=== PATIENT | male | born 1955 | race American Indian/Alaskan Native ===

== ENCOUNTER 2017-03-07 09:49 | Emergency (ER) | payer SELFPAY ==
[2017-03-07 10:23] LABS: Urine Drugs of Abuse Note Disclamer
[2017-03-07 10:31] LABS: Bilirubin,Urine NEG (Negative); Blood,Urine NEG (Negative); Ketones,Urine NEG (Negative); Leukocyte Esterase,Urine NEG (Negative); Mucus,Urine FEW /HPF; Nitrite,Urine NEG (Negative); Protein,Urine <15 mg/dL mg/dL (Negative); Urobilinogen,Urine < 2.0 mg/dL (<2.0); WBC,Urine < 1.0 /HPF (0.0-6.0)
[2017-03-07 10:53] LABS: Basophils % (Auto) 0.7 % (0.0-1.8); Hematocrit 44.9 % (35.5-45.6); Hemoglobin 15.7 gm/dl (11.8-15.2); Mean Corpuscular HGB Conc 35 % (32-34); Mean Corpuscular Hemoglobin 32 pg (28-32); Mean Corpuscular Volume 91 fl (84-94); Platelet Count 265 K/mm3 (140-440); Red Blood Count 4.92 M/mm3 (3.65-5.03); Red Cell Distribution Width 12.7 % (13.2-15.2); White Blood Count 8.1 K/mm3 (4.5-11.0)
--- NOTE | 2017-03-07 10:55 | Emergency Department Report ---
HPI - General Chief Complaint: Hypoglycemia Time Seen by Provider: 03/07/17 10:49 - HPI HPI: This is a 61-year-old Afro-[place] male presents to the emergency department with complaint of some transient confusion and possible hypoglycemia. The patient went out to his car around 5:30 AM to go to work and then woke up there now or so later not remembering that he went out to his car. The patient has a history of insulin dependent diabetes and thought he might be hypoglycemic and took a sugar pill. He then drove himself into the hospital but still felt foggy. He is now had some peanut butter and juice and says that he feels improved but not yet back to 100%. He denies any current headache, vision change, chest pain, shortness of breath. He has a history of insulin-dependent diabetes for which she takes regular insulin on a sliding scale at meals and 70/ 30 at 25 units twice daily. He goes to a clinic in [facility] for his primary care needs. He also has a history of hypertension. No history of [place], CVA, PE/DVT. No recent travel or sick contacts at home. ED Past Medical Hx - Past Medical History Previous Medical History?: Yes Hx Hypertension: Yes Hx Diabetes: Yes - Surgical History Past Surgical History?: Yes Hx Appendectomy: Yes - Social History Smoking Status: Current Some Day Smoker Substance Use Type: Alcohol - Medications Home Medications: Home Medications Medication Instructions Recorded Confirmed Last Taken Type Acetaminophen/Codeine [Tylenol #3] 1 tab PO Q6H PRN #10 tab 12/23/15 03/07/17 Rx Furosemide [Lasix] 20 mg PO QDAY #30 tablet 12/23/15 03/07/17 03/07/17 Rx Insulin NPH/Regular [Novolin 70/30] 25 unit SQ BID 12/23/15 03/07/17 03/07/17 History Insulin Regular, Human [HumuLIN R] 1 unit SQ Q6HR 12/23/15 03/07/17 03/07/17 History amLODIPine [Norvasc] 5 mg PO DAILY #30 tab 12/23/15 03/07/17 03/07/17 Rx ED Review of Systems ROS: Stated complaint: CONFUSION Other details as noted in HPI Comment: All other systems reviewed and negative Constitutional: denies: chills, fever Eyes: denies: eye pain, eye discharge, vision change ENT: denies: ear pain, throat pain Respiratory: denies: cough, shortness of breath, wheezing Cardiovascular: syncope. denies: chest pain, palpitations Gastrointestinal: denies: abdominal pain, nausea, diarrhea Genitourinary: denies: urgency, dysuria Musculoskeletal: denies: back pain, joint swelling, arthralgia Skin: denies: rash, lesions Neurological: confusion. denies: headache, weakness, paresthesias Physical Exam - Physical Exam Vital Signs: Vital Signs 03/07/17 09:57 Temperature 97.3 F L Pulse Rate 96 H Respiratory 16 Rate Blood Pressure 160/97 Physical Exam: GENERAL: The patient is well-developed well-nourished. HEENT: Normocephalic. Atraumatic. Extraocular motions are intact. Patient has moist mucous membranes. Pupils equal reactive to light bilaterally. No nystagmus. NECK: Supple. Trachea is midline. CHEST/LUNGS: Clear to auscultation. There is no respiratory distress noted. HEART/CARDIOVASCULAR: Regular. There is no tachycardia. There is no gallop rub or murmur. ABDOMEN: Abdomen is soft, nontender. Patient has normal bowel sounds. There is no abdominal distention. SKIN: Skin is warm and dry. NEURO: The patient is awake, alert, and oriented. The patient is cooperative. The patient has no focal neurologic deficits. The patient has normal speech. Cranial nerves II through XII grossly intact. MUSCULOSKELETAL: There is no tenderness or deformity. There is no limitation range of motion. There is no evidence of acute injury. Muscle strength 5 out of 5 upper and lower extremities bilaterally. ED Course Vital Signs 03/07/17 09:57 Temperature 97.3 F L Pulse Rate 96 H Respiratory 16 Rate Blood Pressure 160/97 ED Medical Decision Making - Lab Data Result diagrams: 03/07/17 10:17 03/07/17 10:17 - EKG Data -: EKG Interpreted by Me EKG shows normal: sinus rhythm, axis, intervals, QRS complexes, ST-T waves Rate: normal - EKG Data When compared to previous EKG there are: previous EKG unavailable Interpretation: normal EKG - Medical Decision Making 61-year-old male presents to the emergency department after he had some confusion and/or altered mental status earlier. He checked his sugar and found himself to have low blood sugar and took a sugar pill at home. Here the blood sugar was about 70 upon arrival. He was given peanut butter and juice. His blood sugar was rechecked about 2 hours later and his blood sugar level was about 30. He was then given an amp of D50 and a full meal to eat. His blood sugar went up to 180 and then about 250. The patient was once again hypoglycemic he started feeling nauseated and "off", but when the patient had the D50 and full meal he says he again feeling much better and is currently back at baseline. The patient admits that he is not sure whether he had any dinner last night or breakfast this morning but still did continue with his normal diabetes/insulin regiment. This is most likely the reason for his symptoms today. There is been no focal, motor or sensory deficits and his cranial nerves are intact throughout his ED course. Vital signs stable. He will be given referrals for primary care and encouraged to return to the emergency department with any worsening of symptoms or any acute distress. - Differential Diagnosis diabetic hypoglycemia, hypothyroidism, [place] Critical Care Time: No Critical care attestation.: If time is entered above; I have spent that time in minutes in the direct care of this critically ill patient, excluding procedure time. ED Disposition Clinical Impression: Diabetic hypoglycemia Disposition: DC-01 TO HOME OR SELFCARE Is pt being admited?: No Condition: Stable Instructions: Diabetic Hypoglycemia (ED) Additional Instructions: Please follow-up with a primary care physician in the next few days. Make sure to eat 3 meals a day if you are going to take your insulin normally. Keep a blood sugar log. Return to the emergency department with any worsening of your symptoms or any acute distress. Referrals: PHILLIP DESIR MD [Primary Care Provider] - 3-5 Days SHASTA CASTANEDA MD [Staff Physician] - 3-[address] [facility] [place] [Outside] - 3-5 Days [facility] [Outside] - 3-5 Days [facility] [Outside] - 3-5 Days Time of Disposition: 16:17
[2017-03-07 10:57] LABS: Alanine Aminotransferase 19 units/L (7-56); Albumin 4.5 g/dL (3.9-5); Albumin/Globulin Ratio 1.4 %; Alkaline Phosphatase 75 units/L (35-129); Anion Gap 17 mmol/L; BUN/Creatinine Ratio 7.69; Blood Urea Nitrogen 10 mg/dL (9-20); Calcium 9.1 mg/dL (8.4-10.2); Carbon Dioxide 26 mmol/L (22-30); Chloride 101.2 mmol/L (98-107); Glucose 77 mg/dL (75-100); Potassium 4.2 mmol/L (3.6-5.0); Sodium 140 mmol/L (137-145); Total Protein 7.8 g/dL (6.3-8.2)
[2017-03-07] MEDS ORDERED: ZOFRAN ODT PO ONE (13:52)
[2017-03-07] MEDS ORDERED: ZOFRAN IV ONE (13:57)
[2017-03-07] MEDS ORDERED: D50W (25GM) IV ONE (13:57)
[2017-03-07 16:11] VITALS: BP 142/69
== END 2017-03-07 16:30 | disposition home or self-care (01) ==
LOC: ED 09:49
DX: E11.649 Type 2 diabetes mellitus with hypoglycemia without coma (principal); I10 Essential (primary) hypertension; F17.210 Nicotine dependence, cigarettes, uncomplicated; Z79.4 Long term (current) use of insulin
CPT/HCPCS: 36415; 80053; 80307; 81001; 82140; 82962; 83735; 83880; 84443; 84484; 85025; 93005; 93010; 96374; 96375; 99284; G0480; J2405; 80320

== ENCOUNTER 2018-10-04 14:34 | Emergency (ER) | payer SELFPAY ==
[2018-10-04] MEDS ORDERED: MORPHINE IV ONE (16:41)
[2018-10-04] MEDS ORDERED: ZOFRAN IV ONE (16:41)
--- NOTE | 2018-10-04 16:45 | Emergency Department Report ---
ED Headache HPI - General Chief Complaint: Nausea/Vomiting/Diarrhea Stated Complaint: HEADACHE/NAUSEA Time Seen by Provider: 10/04/18 16:12 Source: patient - History of Present Illness Initial Comments: 63-year-old male presents to ED with complaint of headache since this morning. The patient states he awoke with bitemporal headache, nausea and vomiting. Patient also reports blurred vision. States he did not take anything for the pain prior to ED arrival due to his nausea. Did not take his blood pressure medications this morning due to same reason. Patient denies history of headaches. Denies fever, URI symptoms including runny nose, congestion, cough, shortness of breath. Patient denies trauma. Denies neck pain. Denies numbness or paresthesias. PCP: Meka Kerr Timing/Duration: other (this morning) Quality: moderate Head Injury Location: temporal Recent Head Trauma: other Modifying Factors: improves with: other (position, worse with sitting up, better with laying back) Associated Symptoms: nausea/vomiting, vision changes. denies: facial pain, fever/chills, nasal congestion, nasal drainage, sinus infection, stiff neck Allergies/Adverse Reactions: Allergies lisinopril Allergy (Verified 12/22/15 21:27) Unknown Home Medications: Ambulatory Orders Acetaminophen/Codeine [Tylenol #3] 1 tab PO Q6H PRN #10 tab 12/23/15 Furosemide [Lasix] 20 mg PO QDAY #30 tablet 12/23/15 Insulin NPH/Regular [Novolin 70/30] 25 unit SQ BID 12/23/15 Insulin Regular, Human [HumuLIN R] 1 unit SQ Q6HR 12/23/15 amLODIPine [Norvasc] 5 mg PO DAILY #30 tab 12/23/15 Butalb/Acetamin/Caff 50-325-40 [Fioricet] 1 tab PO Q6HR PRN #10 tab 10/04/18 ED Review of Systems ROS: Stated complaint: HEADACHE/NAUSEA Other details as noted in HPI Comment: All other systems reviewed and negative Constitutional: denies: chills, fever Eyes: vision change (blurred vision) ENT: denies: throat pain, congestion Respiratory: denies: cough Cardiovascular: denies: chest pain Gastrointestinal: nausea, vomiting. denies: abdominal pain Neurological: headache. denies: weakness, numbness, vertigo ED Past Medical Hx - Past Medical History Hx Hypertension: Yes Hx Diabetes: Yes - Surgical History Hx Appendectomy: Yes - Social History Smoking Status: Never Smoker Substance Use Type: None - Medications Home Medications: Home Medications Medication Instructions Recorded Confirmed Last Taken Type Acetaminophen/Codeine [Tylenol #3] 1 tab PO Q6H PRN #10 tab 12/23/15 03/07/17 03/07/17 Rx Furosemide [Lasix] 20 mg PO QDAY #30 tablet 12/23/15 03/07/17 03/07/17 Rx Insulin NPH/Regular [Novolin 70/30] 25 unit SQ BID 12/23/15 03/07/17 03/07/17 History Insulin Regular, Human [HumuLIN R] 1 unit SQ Q6HR 12/23/15 03/07/17 03/07/17 History amLODIPine [Norvasc] 5 mg PO DAILY #30 tab 12/23/15 03/07/17 03/07/17 Rx Butalb/Acetamin/Caff 50-325-40 1 tab PO Q6HR PRN #10 tab 10/04/18 Unknown Rx [Fioricet] ED Physical Exam - General Limitations: No Limitations General appearance: alert, in no apparent distress - Head Head exam: Present: atraumatic, normocephalic - Eye Eye exam: Present: normal appearance, PERRL, EOMI - ENT ENT exam: Present: mucous membranes moist - Neck Neck exam: Present: normal inspection. Absent: tenderness, meningismus - Respiratory Respiratory exam: Present: normal lung sounds bilaterally. Absent: respiratory distress - Cardiovascular Cardiovascular Exam: Present: regular rate, normal rhythm - GI/Abdominal GI/Abdominal exam: Present: soft. Absent: distended, tenderness - Extremities Exam Extremities exam: Present: normal inspection - Neurological Exam Neurological exam: Present: alert, oriented X3, CN II-XII intact. Absent: motor sensory deficit - Psychiatric Psychiatric exam: Present: normal affect, normal mood - Skin Skin exam: Present: warm, dry, intact, normal color. Absent: rash ED Course Vital Signs 10/04/18 10/04/18 14:43 18:43 Temperature 98.4 F Pulse Rate 74 98 H Respiratory 16 16 Rate Blood Pressure 178/87 Blood Pressure 173/86 [Left] O2 Sat by Pulse 98 96 Oximetry ED Medical Decision Making - Lab Data Result diagrams: 10/04/18 16:45 10/04/18 16:45 - Radiology Data Radiology results: report reviewed, image reviewed CT Head: no acute abnormality Radiology reports not crossing into Pin digital due to tech issues; results faxed to ED - Medical Decision Making 63-year-old male with temporal headache since this morning. Patient initially hypertensive upon ED arrival. Neurologic exam normal. CT scan did not show any acute findings. Patient was given morphine, Zofran, Reglan, Benadryl. Patient reported improvement of pain following medication administration. The patient currently improved to 142/69. Patient has tolerated PO, ate an entire meal tray here in ED. Will discharge at this time. Return precautions given. Outpatient follow-up advised. - Differential Diagnosis intracranial bleed, electrolyte abnormality, hypertensive KRUEGER, tension KRUEGER Critical care attestation.: If time is entered above; I have spent that time in minutes in the direct care of this critically ill patient, excluding procedure time. ED Disposition Clinical Impression: Acute headache Disposition: DC- TO HOME OR SELFCARE Is pt being admited?: No Condition: Stable Prescriptions: Butalb/Acetamin/Caff 50-325-40 [Fioricet] 1 tab PO Q6HR PRN #10 tab PRN Reason: Headache Referrals: PRIMARY CARE, [Primary Care Provider] - 3-5 Days Time of Disposition: 19:53
[2018-10-04 17:08] LABS: Basophils % (Auto) 0.4 % (0.0-1.8); Lymphocytes # (Auto) 0.8 K/mm3 (1.2-5.4); Lymphocytes % (Auto) 7.5 % (13.4-35.0); Mean Corpuscular HGB Conc 36 % (32-34); Mean Corpuscular Volume 92 fl (84-94); Monocytes # (Auto) 0.8 K/mm3 (0.0-0.8); Monocytes % (Auto) 7.3 % (0.0-7.3); Platelet Count 223 K/mm3 (140-440); Red Blood Count 4.95 M/mm3 (3.65-5.03); Red Cell Distribution Width 12.4 % (13.2-15.2)
[2018-10-04 17:19] LABS: Hematocrit 45.4 % (35.5-45.6); Hemoglobin 16.2 gm/dl (11.8-15.2)
[2018-10-04 17:20] LABS: BUN/Creatinine Ratio 10; Blood Urea Nitrogen 10 mg/dL (9-20); Calcium 8.9 mg/dL (8.4-10.2); Hemolysis Index 83
[2018-10-04] MEDS ORDERED: BENADRYL ONE (18:53)
[2018-10-04] MEDS ORDERED: REGLAN ONE (18:53)
[2018-10-04] MEDS ORDERED: REGLAN IV ONE (18:54)
[2018-10-04] MEDS ORDERED: BENADRYL IV ONE (18:54)
[2018-10-04] MEDS ORDERED: FIORICET ONE (20:02)
--- NOTE | 2018-10-04 23:20 | Cat Scan Report ---
CT HEAD/BRAIN WO CON CLINICAL INDICATION: Male, 63 years of age. headache COMPARISON: None TECHNIQUE: Contiguous axial images were obtained from the vertex through the skull base.This CT exam was perform ed using one or more of the following dose reduction techniques: automated exposure control, adjustme nt of the mA and/or kV according to patient size, or use of iterative reconstruction technique. FINDINGS: No acute intracranial hemorrhage, midline shift, or pathological extra-axial fluid collection. There is age-related volume loss with compensatory dilatation of the ventricular system and prominence of the overlying sulci. Patchy areas of decreased attenuation within the subcortical and periventricula r white matter compatible with the sequelae of chronic small vessel ischemic disease. Small chronic a ppearing lacunar infarcts in the bilateral basal ganglia. Ocular globes are grossly unremarkable. Lui varium is grossly intact. Mild mucosal thickening in the paranasal sinuses. Mastoid air cells are clear. IMPRESSION: No grossly acute intracranial abnormality. Mild volume loss and chronic small vessel ischemic disease . This document is electronically signed by Robbie Vincent DO., October 04 2018 06:11:30 PM ET
[2018-10-05] MEDS ORDERED: FIORICET PO ONE (00:21)
[2018-10-05 00:26] VITALS: BP 172/73
== END 2018-10-04 20:16 | disposition home or self-care (01) ==
LOC: ED 14:34
DX: R51 Headache (principal); R11.2 Nausea with vomiting, unspecified; H57.89 Other specified disorders of eye and adnexa; I10 Essential (primary) hypertension; E11.9 Type 2 diabetes mellitus without complications; Z88.8 Allergy status to other drugs, medicaments and biological substances; Z79.4 Long term (current) use of insulin
CPT/HCPCS: 36415; 70450; 80048; 85025; 96374; 96375; 99284; J1200; J2270; J2405; J2765

== ENCOUNTER 2018-10-12 07:21 | Inpatient (IN) | payer SELFPAY ==
[2018-10-12 08:25] LABS: Basophils # (Auto) 0.1 K/mm3 (0.0-0.1); Basophils % (Auto) 0.7 % (0.0-1.8); Hematocrit 42.7 % (35.5-45.6); Lymphocytes # (Auto) 0.8 K/mm3 (1.2-5.4); Lymphocytes % (Auto) 6.2 % (13.4-35.0); Mean Corpuscular HGB Conc 35 % (32-34); Mean Corpuscular Volume 92 fl (84-94); Monocytes % (Auto) 7.8 % (0.0-7.3); Platelet Count 208 K/mm3 (140-440); Red Blood Count 4.64 M/mm3 (3.65-5.03); Red Cell Distribution Width 12.3 % (13.2-15.2)
[2018-10-12 08:39] LABS: INR 0.93 (0.87-1.13)
[2018-10-12 08:40] LABS: Partial Thromboplastin Time 28.1 Sec. (24.2-36.6)
--- NOTE | 2018-10-12 08:40 | XRay Report ---
EXAM: XR CHEST 1V AP HISTORY: hypertension TECHNIQUE: AP chest x-ray dated 10/12/2018 at 7:59 AM. COMPARISON: None available. FINDINGS: The heart size and mediastinum are within normal limits. The lung price and costophrenic angles are clear. There is no acute parenchymal infiltrate, pleural effusion, or pneumothorax seen. The visua lized bony structures are within normal limits. IMPRESSION: 1. No evidence for acute cardiopulmonary disease seen. This document is electronically signed by Adin Barrios MD., October 12 2018 08:37:52 AM ET
[2018-10-12 08:42] LABS: Creatine Kinase MB 19.5 ng/mL (0.0-4.0)
[2018-10-12 08:53] LABS: BUN/Creatinine Ratio 15; Blood Urea Nitrogen 20 mg/dL (9-20); Calcium 8.9 mg/dL (8.4-10.2); Hemolysis Index 11
[2018-10-12 08:57] LABS: Albumin 4.1 g/dL (3.9-5); Bilirubin,Direct 0.2 mg/dL (0-0.2)
[2018-10-12 09:08] LABS: Chol/HDL Ratio 2.16 %
--- NOTE | 2018-10-12 09:41 | Cat Scan Report ---
EXAM: CT HEAD/BRAIN WO CON HISTORY: slurred speech TECHNIQUE: Spiral axial CT images are obtained through the brain without the administration of intra venous contrast. COMPARISON: None available. FINDINGS: There are parenchymal lucencies within the white matter tracks of the centrum semiovale, consistent w ith chronic sequela of atherosclerotic microvascular ischemic disease. Atherosclerosis of the intracr anial ICAs is seen. There is mild diffuse cerebral cortical atrophy. The centrum semiovale, basal ganglia, cerebellum, an d brainstem are otherwise grossly unremarkable for a noncontrast CT scan. There is no acute intracra nial hemorrhage, gross acute infarction, mass lesion, midline shift, or hydrocephalus seen. No extra -axial mass or abnormal fluid collection noted. The calvarium is intact. The partially imaged paranasal sinuses, middle ear cavities and mastoid air cells are clear. IMPRESSION: 1. Mild chronic microvascular ischemic disease throughout the centrum semiovale, but no discernible acute infarction seen. Consider followup MRI with diffusion-weighted imaging to rule out occult acute infarction if clinically warranted. 2. Atherosclerotic disease of the carotid siphons. 3. No skull fracture, intracranial hemorrhage, mass lesion, midline shift, or hydrocephalus seen. This document is electronically signed by Adin Barrios MD., October 12 2018 09:38:55 AM ET
--- NOTE | 2018-10-12 10:06 | Emergency Department Report ---
ED General Adult HPI - General Chief complaint: Hyperglycemia Stated complaint: DIABETES Time Seen by Provider: 10/12/18 07:45 Source: patient Mode of arrival: Ambulatory Limitations: No Limitations - History of Present Illness Initial comments: Is a 63-year-old man who thought it was a good idea to drink alcohol to raise his blood sugar when he found it to be low at about or p.m. yesterday he states. He states he had some slurred speech but it has improved. His bit nonspecific about the amount of alcohol he typically drinks her how much she drank last night. He is an insulin-dependent diabetic. He is obviously poorly managing his blood sugar but I believe he is compliant with his insulin. At time my exam the patient does not complain of headache. However he states he was seen here 2 days ago for a bad headache and had a CT examination. In actuality, the patient was seen on 10/04/2018 rather than 2 days ago: 63-year-old male with temporal headache since this morning. Patient initially hypertensive upon ED arrival. Neurologic exam normal. CT scan did not show any acute findings. Patient was given morphine, Zofran, Reglan, Benadryl. Patient reported improvement of pain following medication administration. The patient currently improved to 142/69. Patient has tolerated PO, ate an entire meal tray here in ED. Will discharge at this time. Return precautions given. Outpatient follow-up advised. Again at this time patient complains of no headache. He denies any focal weakness or numbness. He doesn't report any difficulty with coordination gait or vision. -: Gradual Severity scale (0 -10): 0 - Related Data Home Medications Medication Instructions Recorded Confirmed Last Taken Insulin NPH/Regular [Novolin 70/30] 25 unit SQ BID 12/23/15 03/07/17 03/07/17 Insulin Regular, Human [HumuLIN R] 1 unit SQ Q6HR 12/23/15 03/07/17 03/07/17 Previous Rx's Medication Instructions Recorded Last Taken Type Acetaminophen/Codeine [Tylenol #3] 1 tab PO Q6H PRN #10 tab 12/23/15 03/07/17 Rx Furosemide [Lasix] 20 mg PO QDAY #30 tablet 12/23/15 03/07/17 Rx amLODIPine [Norvasc] 5 mg PO DAILY #30 tab 12/23/15 03/07/17 Rx Butalb/Acetamin/Caff 50-325-40 1 tab PO Q6HR PRN #10 tab 10/04/18 Unknown Rx [Fioricet] Allergies Allergy/AdvReac Type Severity Reaction Status Date / Time lisinopril Allergy Unknown Verified 10/12/18 07:30 ED Review of Systems ROS: Stated complaint: DIABETES Other details as noted in HPI Constitutional: denies: chills, fever Eyes: denies: eye pain, eye discharge, vision change ENT: denies: ear pain, throat pain Respiratory: denies: cough, shortness of breath, wheezing Cardiovascular: denies: chest pain, palpitations Endocrine: no symptoms reported Gastrointestinal: denies: abdominal pain, nausea, diarrhea Genitourinary: denies: urgency, dysuria Musculoskeletal: denies: back pain, joint swelling, arthralgia Skin: denies: rash, lesions Neurological: other (slurred speech). denies: headache, weakness, paresthesias Psychiatric: denies: anxiety, depression Hematological/Lymphatic: denies: easy bleeding, easy bruising ED Past Medical Hx - Past Medical History Hx Hypertension: Yes Hx Diabetes: Yes - Surgical History Hx Appendectomy: Yes - Social History Smoking Status: Never Smoker Substance Use Type: None - Medications Home Medications: Home Medications Medication Instructions Recorded Confirmed Last Taken Type Acetaminophen/Codeine [Tylenol #3] 1 tab PO Q6H PRN #10 tab 12/23/15 03/07/17 03/07/17 Rx Furosemide [Lasix] 20 mg PO QDAY #30 tablet 12/23/15 03/07/17 03/07/17 Rx Insulin NPH/Regular [Novolin 70/30] 25 unit SQ BID 12/23/15 03/07/17 03/07/17 History Insulin Regular, Human [HumuLIN R] 1 unit SQ Q6HR 12/23/15 03/07/17 03/07/17 History amLODIPine [Norvasc] 5 mg PO DAILY #30 tab 12/23/15 03/07/17 03/07/17 Rx Butalb/Acetamin/Caff 50-325-40 1 tab PO Q6HR PRN #10 tab 10/04/18 Unknown Rx [Fioricet] ED Physical Exam - General Limitations: No Limitations General appearance: alert, in no apparent distress - Head Head exam: Present: atraumatic, normocephalic - Eye Eye exam: Present: normal appearance, PERRL, EOMI. Absent: scleral icterus - ENT ENT exam: Present: mucous membranes moist - Neck Neck exam: Present: normal inspection. Absent: tenderness, meningismus - Respiratory Respiratory exam: Present: normal lung sounds bilaterally. Absent: respiratory distress - Cardiovascular Cardiovascular Exam: Present: regular rate, normal rhythm. Absent: systolic murmur, diastolic murmur, rubs, gallop - GI/Abdominal GI/Abdominal exam: Present: soft, normal bowel sounds. Absent: distended, tenderness, guarding, rebound, rigid - Rectal Rectal exam: Present: deferred - Extremities Exam Extremities exam: Present: normal inspection - Back Exam Back exam: Present: normal inspection - Neurological Exam Neurological exam: Present: alert, oriented X3, CN II-XII intact, other (the patient's NIH stroke score is 0. His speech is not slurred.). Absent: motor sensory deficit - Psychiatric Psychiatric exam: Present: normal affect, normal mood - Skin Skin exam: Present: warm, dry, intact, normal color. Absent: rash ED Course Vital Signs 10/12/18 07:27 Temperature 98.6 F Pulse Rate 94 H Respiratory 20 Rate Blood Pressure 172/91 [Right] O2 Sat by Pulse 98 Oximetry - Reevaluation(s) Reevaluation #1: Patient is found to have evidence of cardiomyopathy and rhabdomyolysis. His urine drug screen is here pending. His alcohol level was actually not s ignificantly presents. He is diabetic. I think it would be worthwhile to admit him for treatment of his rhabdomyolysis which will have to be done in a very gradual fashion considering his cardiomyopathy, as well as, further evaluation of his "slurred speech", i.e., stroke workup. 10/12/18 10:50 Reevaluation #2: Discussed with Dr. Dumont. He will admit. 10/12/18 11:13 ED Medical Decision Making - Lab Data Result diagrams: 10/12/18 07:57 10/12/18 07:57 Laboratory Results - last 24 hr 10/12/18 10/12/18 10/12/18 07:35 07:57 07:57 WBC 12.4 H RBC 4.64 Hgb 15.0 Hct 42.7 MCV 92 MCH 32 MCHC 35 H RDW 12.3 L Plt Count 208 Lymph % (Auto) 6.2 L [place] % (Auto) 7.8 H Eos % (Auto) 0.0 Baso % (Auto) 0.7 Lymph # 0.8 L [place] # 1.0 H Eos # 0.0 Baso # 0.1 Seg Neutrophils % 85.3 H Seg Neutrophils # 10.6 H PT INR APTT VBG pH Sodium 136 L Potassium 4.6 Chloride 99.4 Carbon Dioxide 21 L Anion Gap 20 BUN 20 Creatinine 1.3 Estimated GFR > 60 BUN/Creatinine Ratio 15 Glucose 260 H POC Glucose 224 H Lactic Acid Calcium 8.9 Magnesium Total Bilirubin Direct Bilirubin Indirect Bilirubin AST ALT Alkaline Phosphatase Ammonia Total Creatine Kinase CK-MB (CK-2) CK-MB (CK-2) Rel Index Troponin T NT-Pro-B Natriuret Pep Total Protein Albumin Albumin/Globulin Ratio Triglycerides Cholesterol LDL Cholesterol Direct HDL Cholesterol Cholesterol/HDL Ratio Plasma/Serum Alcohol 10/12/18 10/12/18 10/12/18 07:57 07:57 07:57 WBC RBC Hgb Hct MCV MCH MCHC RDW Plt Count Lymph % (Auto) [place] % (Auto) Eos % (Auto) Baso % (Auto) Lymph # [place] # Eos # Baso # Seg Neutrophils % Seg Neutrophils # PT INR APTT VBG pH 7.406 Sodium Potassium Chloride Carbon Dioxide Anion Gap BUN Creatinine Estimated GFR BUN/Creatinine Ratio Glucose POC Glucose Lactic Acid Calcium Magnesium Total Bilirubin Direct Bilirubin Indirect Bilirubin AST ALT Alkaline Phosphatase Ammonia Total Creatine Kinase 4205 H CK-MB (CK-2) 19.5 H CK-MB (CK-2) Rel Index 0.4 Troponin T NT-Pro-B Natriuret Pep Total Protein Albumin Albumin/Globulin Ratio Triglycerides Cholesterol LDL Cholesterol Direct HDL Cholesterol Cholesterol/HDL Ratio Plasma/Serum Alcohol < 0.01 10/12/18 10/12/18 10/12/18 07:57 07:57 07:57 WBC RBC Hgb Hct MCV MCH MCHC RDW Plt Count Lymph % (Auto) [place] % (Auto) Eos % (Auto) Baso % (Auto) Lymph # [place] # Eos # Baso # Seg Neutrophils % Seg Neutrophils # PT 13.0 INR 0.93 APTT 28.1 VBG pH Sodium Potassium Chloride Carbon Dioxide Anion Gap BUN Creatinine Estimated GFR BUN/Creatinine Ratio Glucose POC Glucose Lactic Acid 1.80 Calcium Magnesium 2.30 Total Bilirubin 0.80 Direct Bilirubin 0.2 Indirect Bilirubin 0.6 AST 72 H ALT 24 Alkaline Phosphatase 72 Ammonia Total Creatine Kinase CK-MB (CK-2) CK-MB (CK-2) Rel Index Troponin T 0.050 H NT-Pro-B Natriuret Pep 2942 H Total Protein 7.0 Albumin 4.1 Albumin/Globulin Ratio 1.4 Triglycerides 112 Cholesterol 208 H LDL Cholesterol Direct 115 HDL Cholesterol 96 H Cholesterol/HDL Ratio 2.16 Plasma/Serum Alcohol 10/12/18 07:57 WBC RBC Hgb Hct MCV MCH MCHC RDW Plt Count Lymph % (Auto) [place] % (Auto) Eos % (Auto) Baso % (Auto) Lymph # [place] # Eos # Baso # Seg Neutrophils % Seg Neutrophils # PT INR APTT VBG pH Sodium Potassium Chloride Carbon Dioxide Anion Gap BUN Creatinine Estimated GFR BUN/Creatinine Ratio Glucose POC Glucose Lactic Acid Calcium Magnesium Total Bilirubin Direct Bilirubin Indirect Bilirubin AST ALT Alkaline Phosphatase Ammonia 35.0 Total Creatine Kinase CK-MB (CK-2) CK-MB (CK-2) Rel Index Troponin T NT-Pro-B Natriuret Pep Total Protein Albumin Albumin/Globulin Ratio Triglycerides Cholesterol LDL Cholesterol Direct HDL Cholesterol Cholesterol/HDL Ratio Plasma/Serum Alcohol - Radiology Data Radiology results: report reviewed (chest x-ray no acute process) IMPRESSION: 1. Mild chronic microvascular ischemic disease throughout the centrum semiovale, but no discernible acute infarction seen. Consider followup MRI with diffusion-weighted imaging to rule out occult acute infarction if clinically warranted. 2. Atherosclerotic disease of the carotid siphons. 3. No skull fracture, intracranial hemorrhage, mass lesion, midline shift, or hydrocephalus seen. This document is electronically signed by Adin Barrios MD., October 12 2018 09:38:55 AM ET Critical care attestation.: If time is entered above; I have spent that time in minutes in the direct care of this critically ill patient, excluding procedure time. ED Disposition Clinical Impression: Dysarthria, Poorly-controlled hypertension Rhabdomyolysis Qualifiers: Rhabdomyolysis type: non-traumatic Qualified Code(s): M62.82 - Rhabdomyolysis Cardiomyopathy Qualifiers: Cardiomyopathy type: unspecified Qualified Code(s): I42.9 - Cardiomyopathy, unspecified Type 2 diabetes mellitus Qualifiers: Diabetes mellitus [facility] insulin use: with long line teamster use Diabetes mellitus c omplication status: without complication Qualified Code(s): E11.9 - Type 2 diabetes mellitus without complications Disposition: DC-09 OP ADMIT IP TO THIS HOSP Is pt being admited?: Yes Does the pt Need Aspirin: Yes Condition: Stable Instructions: Diabetes Mellitus Type 2 in Adults (ED) Referrals: PRIMARY CARE, [Primary Care Provider] - 3-5 Days Time of Disposition: 10:53
[2018-10-12] MEDS ORDERED: ASPIRIN PO ONE (10:53)
--- NOTE | 2018-10-12 11:15 | History and Physical Report ---
History of Present Illness Chief complaint: I feel bad History of present illness: 63 YO Male with HTN, DM, ETOH Dependence presents to ED for evaluation. Pt states that he was in his usual state of health at bedtime around 2200 hrs, but he experienced generalized weakness with worsened symptoms in his right arm and leg and an acute onset of slurred speech shortly after awaking from sleep this morning. Pt transported to [facility] via private vehicle. Pt seen and evaluated in ED and found to have symptoms consistent with CVA as well as Rhabdomyolysis. Pt admitted to telemetry and initiated on CVA protocol. Pt lase ingstion of ETOH was on the night prior to admission. Pt denies fever, chills, CP, Palpitations, NVD, Trauma, BRBPR, Skin Rash, Unintentional weight loss, or night sweats. Neurology consulted in ED. Past History Past Medical History: diabetes, hypertension Past Surgical History: appendectomy Social history: , lives with family, alcohol abuse Family history: diabetes, hypertension Medications and Allergies Allergies Allergy/AdvReac Type Severity Reaction Status Date / Time lisinopril Allergy Unknown Verified 10/12/18 11:21 Home Medications Medication Instructions Recorded Confirmed Last Taken Type Acetaminophen/Codeine [Tylenol #3] 1 tab PO Q6H PRN #10 tab 12/23/15 03/07/17 03/07/17 Rx Furosemide [Lasix] 20 mg PO QDAY #30 tablet 12/23/15 03/07/17 03/07/17 Rx Insulin NPH/Regular [Novolin 70/30] 25 unit SQ BID 12/23/15 03/07/17 03/07/17 History Insulin Regular, Human [HumuLIN R] 1 unit SQ Q6HR 12/23/15 03/07/17 03/07/17 History amLODIPine [Norvasc] 5 mg PO DAILY #30 tab 12/23/15 03/07/17 03/07/17 Rx Butalb/Acetamin/Caff 50-325-40 1 tab PO Q6HR PRN #10 tab 10/04/18 Unknown Rx [Fioricet] Review of Systems Constitutional: no weight loss, no weight gain, no fever, no chills Ears, nose, mouth and throat: no ear pain, no ear discharge, no tinnitis, no decreased hearing, no nose pain, no nasal congestion Cardiovascular: no chest pain, no orthopnea, no palpitations, no syncope Respiratory: no cough, no cough with sputum, no excessive sputum, no hemoptysis, no shortness of breath Gastrointestinal: no nausea, no vomiting, no diarrhea, no constipation Genitourinary Male: no hematuria, no flank pain, no discharge, no urinary frequency, no urinary hesitancy Rectal: no pain, no incontinence, no bleeding Musculoskeletal: no neck stiffness, no neck pain, no shooting arm pain, no arm numbness/tingling, no low back pain, no shooting leg pain Integumentary: no rash, no pruritis, no redness, no sores, no wounds Neurological: weakness, aphasia, change in speech, gait dysfunction, motor disturbance, no seizures, no syncope, no tremors Psychiatric: no anxiety, no memory loss, no change in sleep habits, no sleep disturbances, no hypersomnia Endocrine: no cold intolerance, no heat intolerance, no polyphagia, no excessive thirst, no polydipsia, no polyuria Hematologic/Lymphatic: no easy bruising, no easy bleeding, no lymphadenopathy, no lymphedema Allergic/Immunologic: no urticaria, no allergic rhinitis, no wheezing Exam - Constitutional Vitals: Temp Pulse Resp BP Pulse Ox 98.6 F 94 H 20 172/91 98 10/12/18 07:27 10/12/18 07:27 10/12/18 07:27 10/12/18 07:27 10/12/18 07:27 General appearance: Present: mild distress - EENT Eyes: Present: PERRL ENT: hearing intact, clear oral mucosa - Neck Neck: Present: supple, normal ROM - Respiratory Respiratory effort: normal Respiratory: bilateral: CTA - Cardiovascular Heart Sounds: Present: S1 & S2. Absent: rub, click - Extremities Extremities: pulses symmetrical, No edema Peripheral Pulses: within normal limits - Abdominal General gastrointestinal: Present: soft, non-tender, non-distended, normal bowel sounds Male genitourinary: Present: normal - Integumentary Integumentary: Present: clear, warm, dry - Musculoskeletal Musculoskeletal: generalized weakness - Psychiatric Psychiatric: appropriate mood/affect, intact judgment & insight - Neurologic Neurologic: CNII-XII intact, moves all extremities, no gait normal Results - Labs CBC & Chem 7: 10/12/18 07:57 10/12/18 07:57 Labs: Abnormal lab results 10/12/18 10/12/18 10/12/18 Range/Units 07:35 07:57 07:57 WBC 12.4 H (4.5-11.0) K/mm3 MCHC 35 H (32-34) % RDW 12.3 L (13.2-15.2) % Lymph % (Auto) 6.2 L (13.4-35.0) % [place] % (Auto) 7.8 H (0.0-7.3) % Lymph # 0.8 L (1.2-5.4) K/mm3 [place] # 1.0 H (0.0-0.8) K/mm3 Seg Neutrophils % 85.3 H (40.0-70.0) % Seg Neutrophils # 10.6 H (1.8-7.7) K/mm3 Sodium 136 L (137-145) mmol/L Carbon Dioxide 21 L (22-30) mmol/L Glucose 260 H (75-100) mg/dL POC Glucose 224 H (70-105) AST (5-40) units/L Total Creatine Kinase (55-170) units/L CK-MB (CK-2) (0.0-4.0) ng/mL Troponin T (0.00-0.029) ng/mL NT-Pro-B Natriuret Pep (0-900) pg/mL Cholesterol (50-199) mg/dL HDL Cholesterol (40-59) mg/dL 10/12/18 10/12/18 Range/Units 07:57 07:57 WBC (4.5-11.0) K/mm3 MCHC (32-34) % RDW (13.2-15.2) % Lymph % (Auto) (13.4-35.0) % [place] % (Auto) (0.0-7.3) % Lymph # (1.2-5.4) K/mm3 [place] # (0.0-0.8) K/mm3 Seg Neutrophils % (40.0-70.0) % Seg Neutrophils # (1.8-7.7) K/mm3 Sodium (137-145) mmol/L Carbon Dioxide (22-30) mmol/L Glucose (75-100) mg/dL POC Glucose (70-105) AST 72 H (5-40) units/L Total Creatine Kinase 4205 H (55-170) units/L CK-MB (CK-2) 19.5 H (0.0-4.0) ng/mL Troponin T 0.050 H (0.00-0.029) ng/mL NT-Pro-B Natriuret Pep 2942 H (0-900) pg/mL Cholesterol 208 H (50-199) mg/dL HDL Cholesterol 96 H (40-59) mg/dL Assessment and Plan - Patient Problems (1) CVA (cerebral vascular accident) Current Visit: Yes Status: Acute Qualifiers: Precerebral and cerebral artery: middle cerebral artery Laterality of affected vessel: left Plan to address problem: Stroke Protocol: Admit to telemetry, CT head, MRI Brain, MRA Brain, Echo, Carotid Doppler, Echo, PT/OT/Speech, Antiplatelet therapy, lipid panel, statin therapy, (2) EtOH dependence Current Visit: Yes Status: Acute Qualifiers: Substance use status: uncomplicated Qualified Code(s): F10.20 - Alcohol dependence, uncomplicated Plan to address problem: Thiamine, Folic Acid, Multivitamin, CIWA protocol, (3) Cardiomyopathy Current Visit: Yes Status: Acute Qualifiers: Cardiomyopathy type: alcoholic Qualified Code(s): I42.6 - Alcoholic cardiomyopathy Plan to address problem: Supportive care, Strict I/O, Daily weight, ETOH cessation, BNP, monitor uop q shift, (4) Rhabdomyolysis Current Visit: Yes Status: Acute Qualifiers: Rhabdomyolysis type: non-traumatic Qualified Code(s): M62.82 - Rhabdomyolysis Plan to address problem: IVF resuscitation therapy, IV bicarbonate, CK level in AM, urinalysis, monitor uop q shift, monitor serum creatnine for signs of renal failure. (5) DVT prophylaxis Current Visit: Yes Status: Acute Plan to address problem: SCD to BLE while in bed.
[2018-10-12] MEDS ORDERED: ZOFRAN IV PRN (11:17)
[2018-10-12] MEDS ORDERED: TYLENOL PO PRN ×2 (11:17→12:52)
[2018-10-12] MEDS ORDERED: PROVENTIL IH PRN ×2 (11:17→12:52)
[2018-10-12] MEDS ORDERED: SODIUM CHLORIDE FLUSH SYRINGE 10 ML IV PRN ×2 (11:17→12:52)
[2018-10-12] MEDS ORDERED: ATIVAN IV PRN (11:20)
[2018-10-12] MEDS ORDERED: VITAMIN B-1 PO ONE (11:21)
[2018-10-12] MEDS ORDERED: THERAGRAN Tab PO ONE ×2 (11:21→12:46)
[2018-10-12 12:22] LABS: Bilirubin,Urine NEG (Negative); Blood,Urine MOD (Negative); Color,Urine Yellow (Yellow); Urobilinogen,Urine < 2.0 mg/dL (<2.0); WBC,Urine < 1.0 /HPF (0.0-6.0)
[2018-10-12 12:30] LABS: Amphetamine Screen,Urine PRESUMPTIVE NEGATIVE; Benzodiazepines Screen,Urine PRESUMPTIVE NEGATIVE; Cannabinoid Screen,Urine PRESUMPTIVE NEGATIVE; Cocaine Screen,Urine PRESUMPTIVE NEGATIVE; Methadone Screen,Urine PRESUMPTIVE NEGATIVE; Opiate Screen,Urine PRESUMPTIVE NEGATIVE
[2018-10-12] MEDS ORDERED: ASPIRIN ONE (12:45)
[2018-10-12] MEDS ORDERED: VITAMIN B-1 ONE (12:46)
[2018-10-12] MEDS ORDERED: FOLVITE ONE (12:46)
[2018-10-12] MEDS: FOLVITE PO SCH (12:47)
[2018-10-12] MEDS ORDERED: REGLAN PO PRN (12:52)
[2018-10-12] MEDS ORDERED: MILK OF MAGNESIA PO PRN (12:52)
[2018-10-12] MEDS ORDERED: PHENERGAN PR PRN (12:52)
[2018-10-12] MEDS ORDERED: DULCOLAX PR PRN (12:52)
[2018-10-12] MEDS ORDERED: FIORICET PO PRN (12:55)
[2018-10-12] MEDS ORDERED: NACL 0.45% 1000 ML 1,000 ML IV ONE (12:55)
--- NOTE | 2018-10-12 13:55 | Vascular Lab Report ---
PROCEDURE: VL CAROTID DUPLEX BILAT TECHNIQUE: Duplex Doppler ultrasound of the common, internal and external carotid arteries and the v ertebral arteries was performed bilaterally. Larios scale imaging, velocity spectral waveform analysis, and color flow Doppler were employed. HISTORY: stroke COMPARISONS: None . Note: Measurement of carotid stenosis is based on flow velocity values that correlate with the [place] Symptomatic Carotid Endarterectomy Trial (NASCET) based stenosis criteria using the internal carotid artery diameter as the denominator for stenosis calculation. FINDINGS: RIGHT carotid artery: Velocities: ICA PSV: 94 cm/sec ICA End diastolic: 32 cm/sec CCA PSV: 124 cm/sec IC/CC ratio: 0.7 5 Plaque/color flow: Mild heterogeneous plaque without significant spectral broadening or abnormal col or flow . RIGHT vertebral artery: Antegrade systolic and diastolic flow LEFT carotid artery: Velocities: ICA PSV: 103 cm/sec ICA End diastolic: 18 cm/sec CCA PSV: 131 cm/sec IC/CC ratio: 0. 79 Plaque/color flow: Mild heterogeneous plaque without significant spectral broadening or abnormal col or flow . LEFT vertebral artery: Antegrade systolic and diastolic flow IMPRESSION: 1. RIGHT carotid: No hemodynamically significant (less than 50 percent) internal carotid artery med nosis. 2. LEFT carotid: No hemodynamically significant (less than 50 percent) internal carotid artery sten osis. 3. Vertebral arteries: Bilaterally antegrade. This document is electronically signed by Julien Lazo MD., October 12 2018 01:53:09 PM ET
[2018-10-12] MEDS: NACL 0.45% 1000 ML 1,000 ML IV SCH ×2 (15:30→22:48)
[2018-10-12] MEDS ORDERED: AFLURIA QUAD 2018-2019 SYRINGE IM ONE (15:51)
[2018-10-12] MEDS: LASIX PO SCH (16:22)
[2018-10-12] MEDS: NORVASC PO SCH (16:23)
[2018-10-12] MEDS: HumuLIN R SUB-Q SCH (17:18)
[2018-10-12] MEDS: SODIUM CHLORIDE FLUSH SYRINGE 10 ML IV SCH (21:10)
[2018-10-13] MEDS: HumuLIN R SUB-Q SCH ×4 (00:05→19:22)
[2018-10-13] MEDS: ZOFRAN IV PRN (00:23)
[2018-10-13] MEDS: TYLENOL #3 PO PRN ×2 (02:18→20:10)
[2018-10-13] MEDS: NACL 0.45% 1000 ML 1,000 ML IV SCH (08:54)
[2018-10-13] MEDS: SODIUM CHLORIDE FLUSH SYRINGE 10 ML IV SCH ×2 (09:00→21:57)
[2018-10-13] MEDS: NORVASC PO SCH (09:00)
[2018-10-13] MEDS: LASIX PO SCH (09:00)
[2018-10-13] MEDS: FOLVITE PO SCH (09:02)
--- NOTE | 2018-10-13 13:52 | Progress Note ---
Assessment and Plan (1) CVA (cerebral vascular accident) Current Visit: Yes Status: Acute Qualifiers: Precerebral and cerebral artery: middle cerebral artery Laterality of affected vessel: left Plan to address problem: Stroke Protocol: F/u with CT head, MRI Brain, MRA Brain, Echo, Carotid Doppler, Echo, PT/OT/Speech, Antiplatelet therapy, lipid panel, statin therapy, (2) EtOH dependence Current Visit: Yes Status: Acute Qualifiers: Substance use status: uncomplicated Qualified Code(s): F10.20 - Alcohol dependence, uncomplicated Plan to address problem: Thiamine, Folic Acid, Multivitamin, CIWA protocol, (3) Cardiomyopathy Current Visit: Yes Status: Acute Qualifiers: Cardiomyopathy type: alcoholic Qualified Code(s): I42.6 - Alcoholic cardiomyopathy Plan to address problem: Supportive care, Strict I/O, Daily weight, ETOH cessation, BNP, monitor uop q shift, (4) Rhabdomyolysis Current Visit: Yes Status: Acute Qualifiers: Rhabdomyolysis type: non-traumatic Qualified Code(s): M62.82 - Rhabdomyolysis Plan to address problem: IVF resuscitation therapy, IV bicarbonate, CK level in AM, urinalysis, monitor uop q shift, monitor serum creatnine for signs of renal failure. (5) DVT prophylaxis Current Visit: Yes Status: Acute Plan to address problem: SCD to BLE while in bed. Subjective Date of service: 10/13/18 Interval history: pt seen and examined. No new complaint Objective - Constitutional Vitals: Vital Signs - 12hr 10/13/18 10/13/18 10/13/18 02:18 03:18 05:03 Temperature 98.4 F Pulse Rate 73 Respiratory 17 16 20 Rate Blood Pressure 148/80 O2 Sat by Pulse 98 Oximetry 10/13/18 12:55 Temperature 99.2 F Pulse Rate 86 Respiratory 18 Rate Blood Pressure 133/69 O2 Sat by Pulse 97 Oximetry General appearance: Present: no acute distress, well-nourished - EENT Eyes: PERRL, EOM intact Ears: bilateral: normal - Neck Neck: supple, normal ROM - Respiratory Respiratory effort: normal Respiratory: bilateral: CTA - Cardiovascular Rhythm: regular Heart Sounds: Present: S1 & S2. Absent: gallop, rub Extremities: pulses intact, No edema, normal color, Full ROM - Gastrointestinal General gastrointestinal: Present: soft, non-tender, non-distended, normal bowel sounds - Integumentary Integumentary: clear, warm, dry - Musculoskeletal Musculoskeletal: strength equal bilaterally - Neurologic Neurologic: focal deficits (left hemiparesis) - Psychiatric Psychiatric: memory intact, appropriate mood/affect, intact judgment & insight - Labs CBC & Chem 7: 10/12/18 07:57 10/12/18 07:57 Labs: Abnormal lab results 10/12/18 10/12/18 10/13/18 Range/Units 16:52 23:53 05:40 POC Glucose 224 H 218 H (70-105) Total Creatine Kinase 2387 H (55-170) units/L
--- NOTE | 2018-10-13 19:29 | Consultation ---
History of Present Illness Consult date: 10/13/18 Requesting physician: GOYO ASHRAF Reason for Consult: left facial weakness and numbness History of present illness: 63 yr. old rt. handed male with history of insulin dependent diabetes, hypertension and alcohol dependence, presented to ER on 10/12/18 because of low blood sugar. He recalls getting in his truck, then passing out for several hours. Upon awakening he drove himself to the ER, feeling that his legs were weak and speech slurred. He denies numbness or tingling of his extremities, denies problems with vision, headache, nausea, diaphoresis, chest pain, palpitations, dizziness or vertigo. He does not feel that one side was weake than the other. CPK was found to be elevated on admission. CT brain revealed chronic microvascular disease. Past History Past Medical History: diabetes, hypertension Past Surgical History: appendectomy Social history: , lives with family, alcohol abuse Family history: diabetes, hypertension Medications and Allergies Allergies Allergy/AdvReac Type Severity Reaction Status Date / Time lisinopril Allergy Unknown Verified 10/12/18 11:21 Home Medications Medication Instructions Recorded Confirmed Last Taken Type Acetaminophen/Codeine [Tylenol #3] 1 tab PO Q6H PRN #10 tab 12/23/15 10/12/18 10/11/18 Rx Furosemide [Lasix] 20 mg PO QDAY #30 tablet 12/23/15 10/12/18 10/11/18 Rx Insulin NPH/Regular [Novolin 70/30] 25 unit SQ BID 12/23/15 10/12/18 10/11/18 History Insulin Regular, Human [HumuLIN R] 1 unit SQ Q6HR 12/23/15 10/12/18 10/11/18 History amLODIPine [Norvasc] 5 mg PO DAILY #30 tab 12/23/15 10/12/18 10/11/18 Rx Butalb/Acetamin/Caff 50-325-40 1 tab PO Q6HR PRN #10 tab 10/04/18 10/12/18 10/11/18 Rx [Fioricet] Active Meds: Active Medications Acetaminophen (Tylenol) 650 mg PO Q4H PRN PRN Reason: Pain, Mild (1-3) Acetaminophen/Butalbital/Caffeine (Fioricet) 1 tab PO Q6H PRN PRN Reason: Headache Last Admin: 10/12/18 21:09 Dose: 1 tab Documented by: Acetaminophen/Codeine Phosphate (Tylenol #3) 1 tab PO Q6H PRN PRN Reason: Pain, Moderate Last Admin: 10/13/18 02:18 Dose: 1 tab Documented by: Albuterol (Proventil) 2.5 mg IH Q3H PRN PRN Reason: Shortness Of Breath Amlodipine Besylate (Norvasc) 5 mg PO DAILY [facility] Last Admin: 10/13/18 09:00 Dose: 5 mg Documented by: Atorvastatin Calcium (Lipitor) 40 mg PO QHS [facility] Last Admin: 10/12/18 21:09 Dose: 40 mg Documented by: Bisacodyl (Dulcolax) 10 mg PA QDAY PRN PRN Reason: Constipation Folic Acid (Folvite) 1 mg PO QDAY [facility] Last Admin: 10/13/18 09:02 Dose: 1 mg Documented by: Furosemide (Lasix) 20 mg PO QDAY [facility] Last Admin: 10/13/18 09:00 Dose: 20 mg Documented by: Sodium Chloride (Nacl 0.45% 1000 Ml) 1,000 mls @ 100 mls/hr IV DIRECT [facility] Last Admin: 10/13/18 08:54 Dose: 100 mls/hr Documented by: Insulin Human Isoph/Insulin Regular (Humulin 70/30) 25 unit SUB-Q BIDDIAB [facility] Last Admin: 10/13/18 19:21 Dose: 25 unit Documented by: Insulin Human Regular (Humulin R) 1 units SUB-Q Q6HR [facility] Last Admin: 10/13/18 19:22 Dose: 1 units Documented by: Lorazepam (Ativan) 2 mg IV Q1HR PRN PRN Reason: CIWA-Ar 8-15 Magnesium Hydroxide (Milk Of Magnesia) 30 ml PO Q4H PRN PRN Reason: Constipation Metoclopramide HCl (Reglan) 10 mg PO Q6H PRN PRN Reason: Nausea And Vomiting Ondansetron HCl (Zofran) 4 mg IV Q8H PRN PRN Reason: Nausea And Vomiting Last Admin: 10/13/18 00:23 Dose: 4 mg Documented by: Promethazine HCl (Phenergan) 25 mg PA Q6H PRN PRN Reason: Nausea And Vomiting Sodium Chloride (Sodium Chloride Flush Syringe 10 Ml) 10 ml IV BID JARROD Last Admin: 10/13/18 09:00 Dose: 10 ml Documented by: Sodium Chloride (Sodium Chloride Flush Syringe 10 Ml) 10 ml IV PRN PRN PRN Reason: LINE FLUSH Sodium Chloride (Sodium Chloride Flush Syringe 10 Ml) 10 ml IV PRN PRN PRN Reason: LINE FLUSH Review of Systems Constitutional: no sweats, no weakness Ears, nose, mouth and throat: nasal congestion, sinus pressure, sinus pain, no headache, no vertigo Cardiovascular: no chest pain, no palpitations, no rapid/irregular heart beat, no edema, no syncope, no lightheadedness, no shortness of breath Respiratory: no cough, no shortness of breath, no congestion Gastrointestinal: no nausea, no vomiting, no diarrhea, no constipation Genitourinary Male: no dysuria, no urinary frequency Musculoskeletal: other (bilateral leg pain, muscle dorsiflexors and extensors of calves) Integumentary: no pruritis Neurological: lack of coordination, gait dysfunction, no head injury, no transient paralysis, no weakness, no parathesias, no numbness, no ataxia, no v ertigo, no headaches, no double vision, no loss of vision, no hearing difficulties Physical Examination - Vital Signs Vital Signs: Vital Signs Temp Pulse Resp BP Pulse Ox 98.6 F 94 H 20 172/91 98 10/12/18 07:27 10/12/18 07:27 10/12/18 07:27 10/12/18 07:27 10/12/18 07:27 - Physical Exam Narrative exam: General - Resting comfortably in bed. Neurological exam - Speech fluent, relates history well. 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 V-1 thru V-3 intact bilaterally, face symmetric hearing intact, tongue midline. Motor - 5/5 throughout. Reflexes - trace throughout. Sensory - intact to touch and pin. Cerebellar - FTN, FFM, Emil intact. Results - Laboratory Findings CBC and BMP: 10/12/18 07:57 10/12/18 07:57 Abnormal Lab Findings: Abnormal Labs 10/12/18 10/12/18 10/12/18 07:35 07:57 07:57 WBC 12.4 H MCHC 35 H RDW 12.3 L Lymph % (Auto) 6.2 L [place] % (Auto) 7.8 H Lymph # 0.8 L [place] # 1.0 H Seg Neutrophils % 85.3 H Seg Neutrophils # 10.6 H Sodium 136 L Carbon Dioxide 21 L Glucose 260 H POC Glucose 224 H Hemoglobin A1c AST Total Creatine Kinase CK-MB (CK-2) Troponin T NT-Pro-B Natriuret Pep Cholesterol HDL Cholesterol 10/12/18 10/12/18 10/12/18 07:57 07:57 07:57 WBC MCHC RDW Lymph % (Auto) [place] % (Auto) Lymph # [place] # Seg Neutrophils % Seg Neutrophils # Sodium Carbon Dioxide Glucose POC Glucose Hemoglobin A1c 8.8 H AST 72 H Total Creatine Kinase 4205 H CK-MB (CK-2) 19.5 H Troponin T 0.050 H NT-Pro-B Natriuret Pep 2942 H Cholesterol 208 H HDL Cholesterol 96 H 10/12/18 10/12/18 10/13/18 16:52 23:53 05:40 WBC MCHC RDW Lymph % (Auto) [place] % (Auto) Lymph # [place] # Seg Neutrophils % Seg Neutrophils # Sodium Carbon Dioxide Glucose POC Glucose 224 H 218 H Hemoglobin A1c AST Total Creatine Kinase 2387 H CK-MB (CK-2) Troponin T NT-Pro-B Natriuret Pep Cholesterol HDL Cholesterol Assessment and Plan 63 yr old insulin dependent diabetic, presented with spell of hypoglycemia and rhabdomyolosis. No acute changes noted on CT. MRI brain pending. Suspect his balance difficulty and slurred speech may have been due to hypoglycemia, possible ETOH intake. Plan - Await MRI results, Continue fluids for rhabdomyolysis. Regulate insulin.
--- NOTE | 2018-10-13 19:51 | Magnetic Resonance Report ---
PROCEDURE: MR BRAIN WO CON HISTORY: stroke FINDINGS: MRI of the brain was performed using sagittal T1, axial diffusion, axial T2, axial FLAIR, a xial T1 and coronal FLAIR images. Comparison is made with CT examination of October 12. 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 There is no Chiari malformation. Diffusion-weighted images demonstrate no acute transcortical or acute lacunar infarct. There are norm al flow voids in the vertebral arteries, basilar artery and both internal carotid arteries. The mastoid air cells and middle ears appear clear. There is no evidence of acute sinusitis. There are old bilateral basal ganglia lacunar infarcts. There are mild chronic appearing small vessel ischemic white matter changes in the subcortical and periventricular white matter. IMPRESSION: No acute transcortical or acute lacunar infarct This document is electronically signed by Nile Baker MD., October 13 2018 07:49:37 PM ET
--- NOTE | 2018-10-13 19:55 | Magnetic Resonance Report ---
PROCEDURE: MR MRA/MRV HEAD WO CON HISTORY: stroke FINDINGS: MRA of the intracranial arterial vasculature was performed and compared to the MRI performed the same day as well as to the CT head performed October 12. Data was reformatted in multiple projections. These images demonstrate that both vertebral arteries are patent. The basilar artery is patent. Both posterior cerebral arteries are small vessels but appear patent. The right posterior cerebral artery is largely perfused from the anterior circulation, a normal variant. In the anterior circulation the internal carotid, middle cerebral and anterior cerebral arteries appe ar patent. No aneurysm is seen. IMPRESSION: The intracranial arterial vasculature appears patent This document is electronically signed by Nile Baker MD., October 13 2018 07:52:23 PM ET
[2018-10-13] MEDS ORDERED: D50W (25GM) Syringe IV PRN (23:46)
[2018-10-14] MEDS: HumuLIN R SUB-Q SCH ×5 (01:02→21:50)
[2018-10-14 05:17] LABS: Basophils % (Auto) 0.4 % (0.0-1.8); Eosinophils # (Auto) 0.1 K/mm3 (0.0-0.4); Eosinophils % (Auto) 1.2 % (0.0-4.3); Hematocrit 41.3 % (35.5-45.6); Hemoglobin 14.6 gm/dl (11.8-15.2); Lymphocytes # (Auto) 0.9 K/mm3 (1.2-5.4); Lymphocytes % (Auto) 15.4 % (13.4-35.0); Mean Corpuscular HGB Conc 35 % (32-34); Mean Corpuscular Volume 91 fl (84-94); Monocytes # (Auto) 0.7 K/mm3 (0.0-0.8); Platelet Count 185 K/mm3 (140-440); Red Blood Count 4.53 M/mm3 (3.65-5.03); Red Cell Distribution Width 12.5 % (13.2-15.2)
[2018-10-14 05:41] LABS: BUN/Creatinine Ratio 12; Blood Urea Nitrogen 12 mg/dL (9-20); Calcium 8.2 mg/dL (8.4-10.2); Hemolysis Index 6
[2018-10-14 05:44] LABS: Alanine Aminotransferase 30 units/L (7-56); Albumin 3.4 g/dL (3.9-5)
[2018-10-14 05:45] LABS: Bilirubin,Direct < 0.2 mg/dL (0-0.2)
[2018-10-14] MEDS: NACL 0.45% 1000 ML 1,000 ML IV SCH (07:53)
[2018-10-14] MEDS: NORVASC PO SCH (10:40)
[2018-10-14] MEDS: LASIX PO SCH (10:40)
[2018-10-14] MEDS: FOLVITE PO SCH (10:40)
[2018-10-14] MEDS: SODIUM CHLORIDE FLUSH SYRINGE 10 ML IV SCH ×2 (10:44→21:51)
--- NOTE | 2018-10-14 14:01 | Progress Note ---
Assessment and Plan Assessment and plan: Patient is a 63 yo man with a history of insulin dependent diabetes, hypertension and alcohol dependence who presented to ER on 10/12/18 because of low blood sugar. He recalls getting in his truck, then passing out for several hours. Upon awakening he drove himself to the ER, feeling that his legs were w eak and speech slurred. He was admitted for AMS/syncope and rhabdomyolysis because CPK was found to be elevated on admission. CT brain revealed chronic microvascular disease. MRA/MRI brain negative for acute stroke. -Acute Encephalopathy, most likely dehydration/hypoglycemia related -Syncope, vasoVagal most likely -Acute Rhabdomyolysis trauma from fall/syncope with bilateral posterior leg pains: treat with ivf, daily CPK level and once levels <1000,will d/c -Type 2 DM on insulin: treat with ssi Disposition: continue inpatient care, daily CPK level and once levels <1000,will d/c home History Interval history: Patient was seen and examined. Follow-up on current diagnosis of rhabomyolysis. Overnight uneventful. Patient denies any chest pain, shortness breath, nausea/vomiting or severe headaches. Imaging, nursing note, chart, labs and old chart reviewed. Discussed with patient Hospitalist Physical - Physical exam Narrative exam: GEN: WDWN, NAD, Awake, Alert, Orientated HEENT: NCAT, EOMI, PERRL, OP Clear NECK: supple, no adenopathy, no thyromegaly, no JVD CVS/HEART: RRR, normal S1S2, pulses present bilaterally CHEST/LUNGS: CTA B, Symmetrical chest expansion, good air entry bilaterally GI/Abdomen: soft, NTND, good bowel sounds, no guarding or rebound /Bladder: no suprapubic tenderness, no CVA or paraspinal tenderness EXT/Skin: no c/c/e, no obvious rash MSK: FROM x 4 Neuro: CN 2-12 grossly intact, no new focal deficits Psych: calm - Constitutional Vitals: Temp Pulse Resp BP Pulse Ox 98.4 F 85 18 146/76 96 10/14/18 11:25 10/14/18 11:25 10/14/18 11:25 10/14/18 11:25 10/14/18 11:25 General appearance: Present: no acute distress, well-nourished Results - Labs CBC & Chem 7: 10/14/18 04:49 10/14/18 04:49 Labs: Laboratory Last Values WBC 6.0 K/mm3 (4.5-11.0) 10/14/18 04:49 RBC 4.53 M/mm3 (3.65-5.03) 10/14/18 04:49 Hgb 14.6 gm/dl (11.8-15.2) 10/14/18 04:49 Hct 41.3 % (35.5-45.6) 10/14/18 04:49 MCV 91 fl (84-94) 10/14/18 04:49 MCH 32 pg (28-32) 10/14/18 04:49 MCHC 35 % (32-34) H 10/14/18 04:49 RDW 12.5 % (13.2-15.2) L 10/14/18 04:49 Plt Count 185 K/mm3 (140-440) 10/14/18 04:49 Lymph % (Auto) 15.4 % (13.4-35.0) 10/14/18 04:49 [place] % (Auto) 12.0 % (0.0-7.3) H 10/14/18 04:49 Eos % (Auto) 1.2 % (0.0-4.3) 10/14/18 04:49 Baso % (Auto) 0.4 % (0.0-1.8) 10/14/18 04:49 Lymph # 0.9 K/mm3 (1.2-5.4) L 10/14/18 04:49 [place] # 0.7 K/mm3 (0.0-0.8) 10/14/18 04:49 Eos # 0.1 K/mm3 (0.0-0.4) 10/14/18 04:49 Baso # 0.0 K/mm3 (0.0-0.1) 10/14/18 04:49 Seg Neutrophils % 71.0 % (40.0-70.0) H 10/14/18 04:49 Seg Neutrophils # 4.3 K/mm3 (1.8-7.7) 10/14/18 04:49 PT 13.0 Sec. (12.2-14.9) 10/12/18 07:57 INR 0.93 (0.87-1.13) 10/12/18 07:57 APTT 28.1 Sec. (24.2-36.6) 10/12/18 07:57 VBG pH 7.406 (7.320-7.420) 10/12/18 07:57 Sodium 138 mmol/L (137-145) 10/14/18 04:49 Potassium 3.8 mmol/L (3.6-5.0) 10/14/18 04:49 Chloride 104.0 mmol/L (98-107) 10/14/18 04:49 Carbon Dioxide 23 mmol/L (22-30) 10/14/18 04:49 Anion Gap 15 mmol/L 10/14/18 04:49 BUN 12 mg/dL (9-20) 10/14/18 04:49 Creatinine 1.0 mg/dL (0.8-1.5) 10/14/18 04:49 Estimated GFR > 60 ml/min 10/14/18 04:49 BUN/Creatinine Ratio 12 % 10/14/18 04:49 Glucose 180 mg/dL (75-100) H 10/14/18 04:49 POC Glucose 218 (70-105) H 10/12/18 23:53 Hemoglobin A1c 8.8 % (4-6) H 10/12/18 07:57 Lactic Acid 1.80 mmol/L (0.7-2.0) 10/12/18 07:57 Calcium 8.2 mg/dL (8.4-10.2) L 10/14/18 04:49 Magnesium 2.30 mg/dL (1.7-2.3) 10/12/18 07:57 Total Bilirubin 0.40 mg/dL (0.1-1.2) 10/14/18 04:49 Direct Bilirubin < 0.2 mg/dL (0-0.2) 10/14/18 04:49 Indirect Bilirubin 0.6 mg/dL 10/12/18 07:57 AST 41 units/L (5-40) H 10/14/18 04:49 ALT 30 units/L (7-56) 10/14/18 04:49 Alkaline Phosphatase 62 units/L (35-129) 10/14/18 04:49 Ammonia 35.0 umol/L (25-60) 10/12/18 07:57 Total Creatine Kinase 2387 units/L (55-170) H 10/13/18 05:40 CK-MB (CK-2) 19.5 ng/mL (0.0-4.0) H 10/12/18 07:57 CK-MB (CK-2) Rel Index 0.4 (0-4) 10/12/18 07:57 Troponin T 0.050 ng/mL (0.00-0.029) H 10/12/18 07:57 NT-Pro-B Natriuret Pep 2942 pg/mL (0-900) H 10/12/18 07:57 Total Protein 5.8 g/dL (6.3-8.2) L 10/14/18 04:49 Albumin 3.4 g/dL (3.9-5) L 10/14/18 04:49 Albumin/Globulin Ratio 1.4 % 10/14/18 04:49 Triglycerides 112 mg/dL (2-149) 10/12/18 07:57 Cholesterol 208 mg/dL (50-199) H 10/12/18 07:57 LDL Cholesterol Direct 115 mg/dL (50-130) 10/12/18 07:57 HDL Cholesterol 96 mg/dL (40-59) H 10/12/18 07:57 Cholesterol/HDL Ratio 2.16 % 10/12/18 07:57 Urine Color Yellow (Yellow) 10/12/18 11:41 Urine Turbidity Clear (Clear) 10/12/18 11:41 Urine pH 7.0 (5.0-7.0) 10/12/18 11:41 Ur Specific [place] 1.011 (1.003-1.030) 10/12/18 11:41 Urine Protein 100 mg/dl mg/dL (Negative) 10/12/18 11:41 Urine Glucose (UA) >=500 mg/dL (Negative) 10/12/18 11:41 Urine Ketones Neg mg/dL (Negative) 10/12/18 11:41 Urine Blood Mod (Negative) 10/12/18 11:41 Urine Nitrite Neg (Negative) 10/12/18 11:41 Urine Bilirubin Neg (Negative) 10/12/18 11:41 Urine Urobilinogen < 2.0 mg/dL (<2.0) 10/12/18 11:41 Ur Leukocyte Esterase Neg (Negative) 10/12/18 11:41 Urine WBC (Auto) < 1.0 /HPF (0.0-6.0) 10/12/18 11:41 Urine RBC (Auto) 5.0 /HPF (0.0-6.0) 10/12/18 11:41 Urine Opiates Screen Presumptive negative 10/12/18 11:41 Urine Methadone Screen Presumptive negative 10/12/18 11:41 Ur Barbiturates Screen Presumptive negative 10/12/18 11:41 Ur Phencyclidine Scrn Presumptive negative 10/12/18 11:41 Ur Amphetamines Screen Presumptive negative 10/12/18 11:41 U Benzodiazepines Scrn Presumptive negative 10/12/18 11:41 Urine Cocaine Screen Presumptive negative 10/12/18 11:41 U Marijuana (THC) Screen Presumptive negative 10/12/18 11:41 Drugs of Abuse Note Disclamer 10/12/18 11:41 Plasma/Serum Alcohol < 0.01 % (0-0.07) 10/12/18 07:57
[2018-10-15] MEDS: NACL 0.45% 1000 ML 1,000 ML IV SCH (01:49)
[2018-10-15] MEDS: HumuLIN R SUB-Q SCH ×2 (08:00→13:00)
[2018-10-15] MEDS: LASIX PO SCH (09:32)
[2018-10-15] MEDS: FOLVITE PO SCH (09:32)
[2018-10-15] MEDS: SODIUM CHLORIDE FLUSH SYRINGE 10 ML IV SCH (09:32)
[2018-10-15] MEDS: NORVASC PO SCH (09:32)
[2018-10-15] MEDS: ZOFRAN IV PRN (09:43)
[2018-10-15 12:20] VITALS: BP 134/74
--- NOTE | 2018-10-15 12:28 | Discharge Summary ---
Providers - Providers Date of Admission: 10/12/18 11:59 Date of discharge: 10/15/18 Attending physician: YEYO PERDUE 10/12/18 12:53 Occupational Therapy Evaluate and Treat [CONS] Routine Comment: Reason For Exam: Neuro deficits Physical Therapy Evaluation and Treat [CONS] Routine Comment: Reason For Exam: Neuro deficits 10/12/18 12:55 Consult to Physician [CONS] Routine Comment: Consulting Provider: ORVILLE CORNELIUS Physician Instructions: Reason For Exam: cva 10/14/18 11:58 Consult to Dietitian/Nutrition [CONS] Routine Physician Instructions: Reason For Exam: diabetic teaching Reason for Consult: Diet education Primary care physician: FUEL AGENT Hospitalization Condition: Stable Hospital course: Patient is a 63 yo man with a history of insulin dependent diabetes, hypertension and alcohol dependence who presented to ER on 10/12/18 because of low blood sugar. He recalls getting in his truck, then passing out for several hours. Upon awakening he drove himself to the ER, feeling that his legs were weak and speech slurred. He was admitted for AMS/syncope and rhabdomyolysis because CPK was found to be elevated on admission. CT brain revealed chronic microvascular disease. MRA/MRI brain negative for acute stroke. -Acute Encephalopathy, most likely dehydration/hypoglycemia related -Syncope, vasoVagal most likely -Acute Rhabdomyolysis trauma from fall/syncope with bilateral posterior leg pains: treat with ivf, daily CPK level and once levels <1000,will d/c -Type 2 DM on insulin: treat with ssi -Bilateral calf pains, thought to be related to rhabdomyolysis, check venous dopplers to rule out DVT Disposition: GA-01 TO HOME OR SELFCARE Time spent for discharge: 46 minutes Core Measure Documentation - Palliative Care Palliative Care/ Comfort Measures: Not Applicable - Core Measures Any of the following diagnoses?: none - VTE Discharge Requirements Deep Vein Thrombosis/Pulmonary Embolism Present on Admission: No Has pt received <5 days of overlap therapy or INR<2.0: No Anticoagulant overlap therapy prescribed at discharge: No Contraindication No Overlap Therapy order at DC: Not Indicated Exam - Physical Exam Narrative exam: GEN: WDWN, NAD, Awake, Alert, Orientated HEENT: NCAT, EOMI, PERRL, OP Clear NECK: supple, no adenopathy, no thyromegaly, no JVD CVS/HEART: RRR, normal S1S2, pulses present bilaterally CHEST/LUNGS: CTA B, Symmetrical chest expansion, good air entry bilaterally GI/Abdomen: soft, NTND, good bowel sounds, no guarding or rebound /Bladder: no suprapubic tenderness, no CVA or paraspinal tenderness EXT/Skin: no c/c/e, no obvious rash MSK: FROM x 4 Neuro: CN 2-12 grossly intact, no new focal deficits Psych: calm - Constitutional Vitals: Temp Pulse Resp BP Pulse Ox 97.9 F 81 18 134/74 98 10/15/18 12:17 10/15/18 12:17 10/15/18 12:17 10/15/18 12:17 10/15/18 12:17 Plan Activity: other (no strenous activity unless cleared by PCP) Diet: low salt, diabetic Special Instructions: record daily BP diary, record blood sugar diary (three times a day with meals) Follow up with: PRIMARY CARE, [Primary Care Provider] - 3-5 Days [facility] [Provider Group] - 7 Days Prescriptions: Folic Acid [Folvite] 1 mg PO QDAY #30 tablet
--- NOTE | 2018-10-15 12:40 | Vascular Lab Report ---
PROCEDURE: VL VENOUS DUPLEX LE BILAT TECHNIQUE: Duplex Doppler imaging of the veins of the bilateral lower extremities was performed. HISTORY: bilateral leg pains COMPARISONS: None. FINDINGS: The veins of the right lower extremity are patent, compressible, and demonstrate normal waveforms and augmentation. The veins of the left lower extremity are patent, compressible, and demonstrate normal waveforms and augmentation. IMPRESSION: No evidence of deep venous thrombosis in the bilateral lower extremities. This document is electronically signed by Hortensia Nunes MD., October 15 2018 12:37:21 PM ET
== END 2018-10-15 16:00 | disposition home or self-care (01) | DRG 71 ==
LOC: ED 07:21 → 3A 11:59
PROVIDERS: ADMIT Internal Medicine; ATTEND Internal Medicine
DX: G93.40 Encephalopathy, unspecified (principal); M62.82 Rhabdomyolysis; I42.6 Alcoholic cardiomyopathy; F10.20 Alcohol dependence, uncomplicated; I10 Essential (primary) hypertension; E11.649 Type 2 diabetes mellitus with hypoglycemia without coma; W18.39XA Other fall on same level, initial encounter; E86.0 Dehydration; R55 Syncope and collapse; Y90.0 Blood alcohol level of less than 20 mg/100 ml; Z83.3 Family history of diabetes mellitus; Z82.49 Family history of ischemic heart disease and other diseases of the circulatory system; Z90.49 Acquired absence of other specified parts of digestive tract; Z88.6 Allergy status to analgesic agent; Z79.899 Other long term (current) drug therapy; Z79.4 Long term (current) use of insulin; Z71.41 Alcohol abuse counseling and surveillance of alcoholic; Y93.89 Activity, other specified; Y92.098 Other place in other non-institutional residence as the place of occurrence of the external cause; Y99.8 Other external cause status
CPT/HCPCS: 36415; 70450; 70544; 70551; 71045; 80048; 80061; 80076; 80307; 80320; 81001; 82140; 82550; 82553; 82805; 82962; 83036; 83735; 83880; 84484; 85025; 85610; 85730; 90686; 93005; 93010; 93306; 93880; 93970; G0378; A9270-GY; G0480; J1815; J2405; J7030